=== PATIENT | female | born 1995 | race Caucasian/White ===

== ENCOUNTER 2017-04-30 05:44 | Emergency (ER) | payer OTHER ==
[2017-04-30 05:50] VITALS: BP 108/78; PULSE 70; RESP 14; TEMP 97.5; O2SAT 97
--- NOTE | 2017-04-30 05:57 | EDPHY ---
H & P Stated Complaint: right pointer finger lac with xacto knife HPI/ROS: HPI CHIEF COMPLAINT: Right index finger laceration HISTORY OF PRESENT ILLNESS: Patient very pleasant 21-year-old female denies any significant medical history does not take any daily medications she presents emergency room with a laceration over the dorsum of the right hand index finger. Base of her index finger. Linear 3 cm in vertical length. She sustained this while reaching into her book bag into her pencil container which had Exacto knife. The exact tonight caught her hand. Tetanus up-to-date. She has full range of motion. No tendon injury. No arterial injury. Past Medical History: No significant medical history Past Surgical History: No significant surgical history Social History: Denies daily use drugs alcohol tobacco products. [employer] student. Family History: Noncontributory ROS REVIEW OF SYSTEMS: A comprehensive 10 point review of systems is otherwise negative aside from elements mentioned in the history of present illness. Exam Constitutional appears well nontoxic triage nursing summary reviewed, vital signs reviewed, awake/alert. Eyes normal conjunctivae and sclera, EOMI, PERRLA. HENT normal inspection, atraumatic, moist mucus membranes, no epistaxis, neck supple/ no meningismus, no raccoon eyes. Respiratory clear to auscultation bilaterally, normal breath sounds, no respiratory distress, no wheezing. Cardiovascular rate normal, regular rhythm, no murmur, no edema, distal pulses normal. Gastrointestinal soft, non-tender, no rebound, no guarding, normal bowel sounds, no distension, no pulsatile mass. Genitourinary no CVA tenderness. Musculoskeletal no midline vertebral tenderness, full range of motion, no calf swelling, no tenderness of extremities, no meningismus, good pulses, neurovascularly intact. Skin right hand: Dorsum of the index finger. Base of the index finger vertically oriented very clean linear 3 cm laceration. No bony involvement. No arterial vomit. No tendon involvement. Fingers neurovascular intact. Hand neurovascular intact. Full range of motion. pink, warm, & dry, no rash, skin atraumatic. Neurologic awake, alert and oriented x 3, AAOx3, moves all 4 extremities equally, motor intact, sensory intact, CN II-XII intact, normal cerebellar, normal vision, normal speech. Psychiatric normal mood/affect. Heme/Lymph/Immune no lymphadenopathy. Differential Diagnosis: Includes but is not limited to in a particular order right hand laceration. Soft tissue injury. Medical Decision Making: Plan for this patient will be need to be copiously cleaned and irrigated. And then sutured closed. Sterilely. Re-evaluation: Laceration Repair Procedure: Verbal Consent was obtained, Under sterile conditions, The patient had lidocaine with epinephrine used approximately 4ccs to local anesthetize the right hand dorsal side base of the index finger 3 cm vertically oriented. Laceration. The wound was copiously irrigated with sterile fluid, the wound was explored for foreign bodies there were none visualized, the wound was explored with a sterile glove to the base. There are no deep structures involved, including no arterial injury. THREE 6.O PROLENE interrupted Sutures were placed in this patient's laceration. She had good close approximation of the wound edges. She Tolerated this well. Patient understands return emergency room to have her sutures removed. 12 days. Finger splint provided for protection and immobilization of the joint as the laceration is sutured over the joint. Keep an eye on it for infection. Redness drainage pus. Keep clean, dry. Warm soapy water in 24 hours. Nothing in the wound. She understands. Return precautions given Source: Patient - Personal History LMP (Females 10-55): Extended Cycle BCP/Inj Current Tetanus/Diphtheria Vaccine: Yes Current Tetanus Diphtheria and Acellular Pertussis (TDAP): Yes - Medical/Surgical History Hx Asthma: No Hx Chronic Respiratory Disease: No Hx Diabetes: No Hx Cardiac Disease: No Hx Renal Disease: No Hx Cirrhosis: No Hx Alcoholism: No Hx HIV/AIDS: No Hx Splenectomy or Spleen Trauma: No Other PMH: wisdom teeth - Social History Smoking Status: Never smoked Constitutional: Initial Vital Signs Temperature (C) 36.4 C 04/30/17 05:46 Heart Rate 70 04/30/17 05:46 Respiratory Rate 14 04/30/17 05:46 Blood Pressure 108/78 04/30/17 05:46 O2 Sat (%) 97 04/30/17 05:46 O2 Delivery Mode Room Air Allergies/Adverse Reactions: No Known Allergies Allergy (Verified 04/30/17 05:49) Home Medications: Medication Instructions Recorded NO HOME MEDS 05/11/10 Departure - Departure Disposition: Home, Routine, Self-Care Clinical Impression: Finger laceration Qualifiers: Encounter type: initial encounter Finger: index finger Damage to nail status: with damage Foreign body presence: without foreign body Laterality: right Qualified Code(s): S61.310A - Laceration without foreign body of right index finger with damage to nail, initial encounter Condition: Good Instructions: Care For Your Stitches (ED), Laceration (ED) Additional Instructions: 1. Sutures need to be removed in 12-14 days. 2. Keep her wound clean, dry, protected and intact. 3. Finger splint for comfort and protection. 4. Return emergency room if you have any further questions or concerns. Sutures out in 12 days. Referrals: NONE *PRIMARY CARE P,. [Primary Care Provider] - As per Instructions
== END 2017-04-30 06:25 | disposition home or self-care (01) ==
PROC: 0HQFXZZ Repair Right Hand Skin, External Approach (ICD-10-PCS; principal; 2017-04-30)
DX: S61.210A Laceration without foreign body of right index finger without damage to nail, initial encounter (principal); W26.0XXA Contact with knife, initial encounter